=== PATIENT | female | born 1945 | race Caucasian/White ===

== ENCOUNTER 2017-09-29 10:09 | Outpatient (CLI) | payer OTHER ==
[~2017-09-29 10:09] MED LIST: METOPROLOL SUCC25 MG; PLAVIX75 MG; SYMBALTA; SYNTHROID50 MCG
== END 2017-09-29 10:13 | disposition home or self-care (01) ==
LOC: RAD 10:09
DX: M12.842 Other specific arthropathies, not elsewhere classified, left hand (principal); M12.841 Other specific arthropathies, not elsewhere classified, right hand; M12.872 Other specific arthropathies, not elsewhere classified, left ankle and foot; M12.871 Other specific arthropathies, not elsewhere classified, right ankle and foot; M19.072 Primary osteoarthritis, left ankle and foot; M19.071 Primary osteoarthritis, right ankle and foot; M19.042 Primary osteoarthritis, left hand; M19.041 Primary osteoarthritis, right hand

== ENCOUNTER 2018-02-03 10:09 | Outpatient (CLI) | payer OTHER | END 2018-02-03 10:16 | disposition home or self-care (01) | LOC: SONOGRAMA 10:09 | DX: M25.571 Pain in right ankle and joints of right foot (principal) ==

== ENCOUNTER 2019-10-25 09:15 | Inpatient (IN) | payer OTHER ==
[~2019-10-25] VITALS: Ht 121.9 cm; Wt 5.0 kg
[2019-10-25] MEDS ORDERED: ATACAND HCT 321 EACH PO (09:32)
[2019-10-25] MEDS ORDERED: SIMVASTATIN40 MG PO (09:33)
[2019-10-25] MEDS ORDERED: ASPIR 8181 MG PO (09:33)
[2019-10-27] MEDS ORDERED: CYMBALTA20 MG (12:15)
== END 2019-11-03 13:30 | disposition home or self-care (01) | DRG 392 ==
LOC: ER 09:15 → SURH 17:04 → MEDJ 17:04 → SURH 18:20
PROVIDERS: ADMIT Internal Medicine Cardiovascular Disease
PROC: BW21ZZZ Computerized Tomography (CT Scan) of Abdomen and Pelvis (ICD-10-PCS; principal; 2019-10-25)
PROC: BW21ZZZ Computerized Tomography (CT Scan) of Abdomen and Pelvis (ICD-10-PCS; 2019-11-01)
DX: K57.20 Diverticulitis of large intestine with perforation and abscess without bleeding (principal); F31.89 Other bipolar disorder; I10 Essential (primary) hypertension; E03.9 Hypothyroidism, unspecified; D35.01 Benign neoplasm of right adrenal gland
CPT/HCPCS: 72191; 74175

== ENCOUNTER 2020-04-28 11:13 | Outpatient (CLI) | payer OTHER ==
[~2020-04-28 11:13] MED LIST changes: +ASPIR 8181 MG PO; +ATACAND HCT 321 EACH PO; +CYMBALTA20 MG; +SIMVASTATIN40 MG PO
== END 2020-04-28 11:20 | disposition home or self-care (01) ==
LOC: RAD 11:13
PROVIDERS: ATTEND Surgery
DX: R10.32 Left lower quadrant pain (principal); K57.32 Diverticulitis of large intestine without perforation or abscess without bleeding

== ENCOUNTER 2020-05-03 09:02 | Outpatient (CLI) | payer OTHER | END 2020-05-03 09:08 | disposition home or self-care (01) | LOC: LAB 09:02 | PROVIDERS: ATTEND Surgery | DX: K57.32 Diverticulitis of large intestine without perforation or abscess without bleeding (principal); R10.32 Left lower quadrant pain ==

== ENCOUNTER 2020-08-08 09:23 | Emergency (ER) | payer OTHER ==
[~2020-08-08] VITALS: Ht 162.6 cm; Wt 90.7 kg
[2020-08-08] MEDS ORDERED: VITAMIN C WIT1000 MG PO (13:12)
[2020-08-08] MEDS ORDERED: ACETAMINOPHEN650 M2 PO (13:12)
[2020-08-08] MEDS ORDERED: GUAIFENESIN400 MG PO (13:12)
== END 2020-08-08 13:17 | disposition home or self-care (01) ==
LOC: ER 09:23
DX: B34.9 Viral infection, unspecified (principal); J06.9 Acute upper respiratory infection, unspecified; Z03.818 Encounter for observation for suspected exposure to other biological agents ruled out

== ENCOUNTER 2021-08-09 07:54 | Outpatient (CLI) | payer OTHER ==
[~2021-08-09 07:54] MED LIST changes: +ACETAMINOPHEN650 M2 PO; +GUAIFENESIN400 MG PO; +VITAMIN C WIT1000 MG PO
== END 2021-08-09 07:56 | disposition home or self-care (01) ==
LOC: TOM 07:54
PROVIDERS: ATTEND Internal Medicine Gastroenterology
DX: K57.90 Diverticulosis of intestine, part unspecified, without perforation or abscess without bleeding (principal); R10.32 Left lower quadrant pain

== ENCOUNTER 2022-04-26 12:30 | Emergency (ER) | payer OTHER ==
[~2022-04-26] VITALS: Ht 162.6 cm; Wt 88.9 kg
[2022-04-26] MEDS ORDERED: CYMBALTA30 MG PO (12:44)
== END 2022-04-26 14:46 | disposition home or self-care (01) ==
LOC: ER 12:30
DX: R00.2 Palpitations (principal); Z91.041 Radiographic dye allergy status; I10 Essential (primary) hypertension; E03.9 Hypothyroidism, unspecified

== ENCOUNTER 2023-06-07 09:45 | Inpatient (IN) | payer OTHER ==
[~2023-06-07] VITALS: Ht 162.6 cm; Wt 89.8 kg
[~2023-06-07 09:45] MED LIST changes: +CYMBALTA30 MG PO
[2023-06-07] MEDS ORDERED: IRBESARTAN150 MG PO (10:05)
[2023-06-07] MEDS ORDERED: LIPITOR80 MG PO (10:05)
[2023-06-07] MEDS ORDERED: CYMBALTA30 MG PO (10:06)
[2023-06-07] MEDS ORDERED: XARELTO20 MG (10:06)
[2023-06-07] MEDS ORDERED: RESTORIL7.5 MG PO (10:07)
--- NOTE | 2023-06-07 10:07 | NUR ---
SE RECIBE PTE ALERTA Y ORIENTADA X3 CON HX DD INFARTO AL MIOCARDIO. VIENE POR ORDEN DE EL ESTABAN ADAN POR RESULTADOS DE HEMOGLOBINA BAJA. SE OBSERVA A PTE PALIDA Y REFIERE SENTIRSE CANSADA. SE MIDEN S/V Y SE UBICA.
[2023-06-07 11:05] LABS: MEAN CORPUSCULAR HGB CONC 34.6 g/dl (32.0-36.0); PLATELET COUNT 354 K/uL (150-450); RED BLOOD COUNT 2.32 M/uL (4.00-6.00); RED CELL DISTRIBUTION WIDTH 16.3 % (11.5-14.5)
[2023-06-07 11:09] LABS: HEMATOCRIT 20.8 % (36.0-45.00); HEMOGLOBIN 7.2 g/dL (12.0-15.00)
--- NOTE | 2023-06-07 11:19 | NUR ---
SE ELIO MUESTRAS DE LABORATORIO Y SE ADMINISTRABN MEDICAMENTOS SHARRI ORDEN MEDICA Y SIGUIENDO MEDIDAS ASEPTICAS. PTE CANALIZADA EN ANTEBRAZO DERECHO CON ANGIO #18 AREA KVNG DE EDEMA Y ERITEMA RECIBIENDO UN .9 DE NSS @100ML/HR Y UN #20 EN ANTEBRAZO DERECHO AREA KVNG DE PROCESOS INFECCIOSOS CON UN S/L. SE HACE EKG Y SE MUESTRA A , SE ENTREGA EN VASE DE U/A Y DE MICHELLE OCULTA Y SE EDUCA A PTE SOBRE LAS MUESTRAS PTE Y FAMILIAR REFIEREN ENTENDER Y ACEPTAR. PTE BAJO OBSERVACION.
[2023-06-07 11:27] LABS: INR 1.14; PARTIAL THROMBOPLASTIN TIME 30.7 SECONDS (22.0-34.0); PROTHROMBIN TIME 11.9 SECONDS (9.0-11.5)
[2023-06-07 11:34] LABS: ALBUMIN 3.2 gm/dL (3.4-5.0); BILIRUBIN TOTAL 0.51 mg/dL (0.3-1.2); CALCIUM 8.9 mg/dL (8.5-10.1); CREATININE SERUM 0.98 mg/dL (0.55-1.02); GFR 55.18; GLOBULINA 3.6 G/DL (2.4-3.5); POTASSIUM 3.99 mEq/L (3.5-5.1); TOTAL PROTEIN 6.8 gm/dL (6.4-8.2)
[2023-06-07 14:36] LABS: CKMB 1.2 NG/ML (0.5-3.6)
[2023-06-07 19:07] LABS: PH,URINE 5.5 (5.0-8.0); URINE APPEARANCE Clear; URINE BILIRRUBIN Negative (NEGATIVE); URINE BLOOD Negative; URINE COLOR Yellow; URINE GLUCOSE Negative (NEGATIVE); URINE LEUKOCYTE Negative; URINE NITRATE Negative; URINE PROTEIN Negative (NEGATIVE); URINE UROBILINOGEN 0.2 E.U./dl
[2023-06-07 19:11] LABS: URINE BACTERIA 157.4 uL (0.0-1933); URINE EPITHELIAL CELLS 13.2 uL (0.0-38.8); URINE WBC 6.3 uL (0.0-23.2)
[2023-06-07 19:35] LABS: URINE RBC 0.7 uL (0.0-20.8)
[2023-06-08 09:25] LABS: MEAN CELL VOLUME 89.1 fL (80.00-100.00); MEAN CORPUSCULAR HGB CONC 33.9 g/dl (32.0-36.0); PLATELET COUNT 332 K/uL (150-450); RED BLOOD COUNT 2.58 M/uL (4.00-6.00); RED CELL DISTRIBUTION WIDTH 17.1 % (11.5-14.5)
[2023-06-08 09:44] LABS: CKMB 1.2 NG/ML (0.5-3.6)
[2023-06-08 09:47] LABS: HEMOGLOBIN 7.8 g/dL (12.0-15.00); MEAN CORPUSCULAR HEMOGLOBIN 30.2 pg (27.00-32.0)
[2023-06-08 10:06] LABS: ALBUMIN 3.1 gm/dL (3.4-5.0); BILIRUBIN TOTAL 0.5 mg/dL (0.3-1.2); CALCIUM 8.7 mg/dL (8.5-10.1); CREATININE SERUM 1.05 mg/dL (0.55-1.02); GFR 50.95; MAGNESIUM 2.2 mg/dL (1.8-2.4); POTASSIUM 3.89 mEq/L (3.5-5.1); TOTAL PROTEIN 6.1 gm/dL (6.4-8.2); TSH 4.55 uIU/mL (0.358-3.74)
[2023-06-08 11:50] LABS: ob POSITIVE (NEGATIVE)
[2023-06-09 07:05] LABS: HEMATOCRIT 26.5 % (36.0-45.00); MEAN CELL VOLUME 88.3 fL (80.00-100.00); MEAN CORPUSCULAR HGB CONC 33.9 g/dl (32.0-36.0); PLATELET COUNT 300 K/uL (150-450); RED CELL DISTRIBUTION WIDTH 16.4 % (11.5-14.5)
[2023-06-10 11:40] LABS: HEMATOCRIT 31.4 % (36.0-45.00); HEMOGLOBIN 10.4 g/dL (12.0-15.00); MEAN CELL VOLUME 85.2 fL (80.00-100.00); MEAN CORPUSCULAR HEMOGLOBIN 28.4 pg (27.00-32.0); MEAN CORPUSCULAR HGB CONC 33.3 g/dl (32.0-36.0); PLATELET COUNT 295 K/uL (150-450); RED BLOOD COUNT 3.68 M/uL (4.00-6.00)
[2023-06-11 06:31] LABS: HEMATOCRIT 29.9 % (36.0-45.00); HEMOGLOBIN 9.9 g/dL (12.0-15.00); MEAN CELL VOLUME 85.1 fL (80.00-100.00); MEAN CORPUSCULAR HEMOGLOBIN 28.1 pg (27.00-32.0); PLATELET COUNT 296 K/uL (150-450); RED BLOOD COUNT 3.52 M/uL (4.00-6.00); RED CELL DISTRIBUTION WIDTH 19.3 % (11.5-14.5)
[2023-06-11 06:49] LABS: ALBUMIN 3.1 gm/dL (3.4-5.0); BILIRUBIN TOTAL 0.73 mg/dL (0.3-1.2); CALCIUM 8.9 mg/dL (8.5-10.1); CREATININE SERUM 0.89 mg/dL (0.55-1.02); GFR 61.67; GLOBULINA 2.9 G/DL (2.4-3.5); MAGNESIUM 2.2 mg/dL (1.8-2.4); PHOSPHOROUS 3.7 mg/dL (2.5-4.9); POTASSIUM 3.93 mEq/L (3.5-5.1)
[2023-06-12 06:50] LABS: HEMATOCRIT 28.9 % (36.0-45.00); HEMOGLOBIN 9.8 g/dL (12.0-15.00); MEAN CELL VOLUME 84.6 fL (80.00-100.00); MEAN CORPUSCULAR HEMOGLOBIN 28.6 pg (27.00-32.0); MEAN CORPUSCULAR HGB CONC 33.8 g/dl (32.0-36.0); PLATELET COUNT 302 K/uL (150-450); RED BLOOD COUNT 3.42 M/uL (4.00-6.00); RED CELL DISTRIBUTION WIDTH 19.9 % (11.5-14.5)
[2023-06-12] MEDS ORDERED: CLOPIDOGREL BIS75 MG PO (18:47)
[2023-06-12] MEDS ORDERED: AMIODARONE HCL200 MG PO (18:48)
== END 2023-06-12 18:49 | disposition home or self-care (01) | DRG 315 ==
LOC: ER 09:45 → MEDI 13:11
PROVIDERS: General Practice; ADMIT Internal Medicine; ATTEND Internal Medicine
PROC: 30233N1 Transfusion of Nonautologous Red Blood Cells into Peripheral Vein, Percutaneous Approach (ICD-10-PCS; principal; 2023-06-07)
PROC: B246ZZZ Ultrasonography of Right and Left Heart (ICD-10-PCS; 2023-06-07)
PROC: BW21ZZZ Computerized Tomography (CT Scan) of Abdomen and Pelvis (ICD-10-PCS; 2023-06-07)
DX: T82.837A Hemorrhage due to cardiac prosthetic devices, implants and grafts, initial encounter (principal); F31.89 Other bipolar disorder; K92.1 Melena; I48.20 Chronic atrial fibrillation, unspecified; D64.89 Other specified anemias; I11.9 Hypertensive heart disease without heart failure; I25.10 Atherosclerotic heart disease of native coronary artery without angina pectoris; E78.00 Pure hypercholesterolemia, unspecified; Z79.01 Long term (current) use of anticoagulants; Z95.5 Presence of coronary angioplasty implant and graft

== ENCOUNTER 2024-09-05 19:31 | Emergency (ER) | payer OTHER ==
[~2024-09-05] VITALS: Ht 162.6 cm; Wt 90.7 kg
[~2024-09-05 19:31] MED LIST changes: +AMIODARONE HCL200 MG PO; +CLOPIDOGREL BIS75 MG PO; +IRBESARTAN150 MG PO; +LIPITOR80 MG PO; +RESTORIL7.5 MG PO; +XARELTO20 MG
[2024-09-05] MEDS ORDERED: 0.9 % SODIUM CHLORIDE 1,000 ML IV ONE (20:30)
[2024-09-05 21:26] LABS: HEMOGLOBIN 13.9 g/dL (12.0-15.00); MEAN CELL VOLUME 92.5 fL (80.00-100.00); MEAN CORPUSCULAR HEMOGLOBIN 31.3 pg (27.00-32.0); MEAN CORPUSCULAR HGB CONC 33.8 g/dl (32.0-36.0); PLATELET COUNT 257 K/uL (150-450); RED BLOOD COUNT 4.44 M/uL (4.00-6.00); RED CELL DISTRIBUTION WIDTH 14.5 % (11.5-14.5)
[2024-09-05 21:40] LABS: INR 1.28; PARTIAL THROMBOPLASTIN TIME 32.3 SECONDS (22.0-34.0); PROTHROMBIN TIME 13.7 SECONDS (9.0-11.5)
[2024-09-05 21:49] LABS: ALBUMIN 3.5 gm/dL (3.4-5.0); BILIRUBIN TOTAL 0.67 mg/dL (0.3-1.2); CALCIUM 9.1 mg/dL (8.5-10.1); CREATININE SERUM 1.28 mg/dL (0.55-1.02); GFR 40.43; GLOBULINA 3.7 G/DL (2.4-3.5); POTASSIUM 3.81 mEq/L (3.5-5.1); TOTAL PROTEIN 7.2 gm/dL (6.4-8.2)
[2024-09-06 00:52] LABS: PH,URINE 5.5 (5.0-8.0); URINE APPEARANCE Turbid; URINE BILIRRUBIN Negative (NEGATIVE); URINE BLOOD Negative; URINE COLOR Yellow; URINE GLUCOSE Negative (NEGATIVE); URINE KETONE Negative (NEGATIVE); URINE LEUKOCYTE Moderate; URINE NITRATE Negative; URINE PROTEIN Trace (NEGATIVE); URINE UROBILINOGEN 0.2 E.U./dl
[2024-09-06 00:56] LABS: URINE BACTERIA 854.3 uL (0.0-1933); URINE CAST 16.79 uL (0.0-1.40); URINE RBC 1624.4 uL (0.0-20.8); URINE WBC 66.8 uL (0.0-23.2)
[2024-09-06 02:01] LABS: URINE MUCUS MODERATE
[2024-09-06 15:33] LABS: CALCIUM 9.3 mg/dL (8.5-10.1); CREATININE SERUM 0.8 mg/dL (0.55-1.02); GFR 69.55; POTASSIUM 3.68 mEq/L (3.5-5.1)
== END 2024-09-06 17:59 | disposition home or self-care (01) ==
LOC: ER 19:31
PROVIDERS: Emergency Medicine; General Practice
DX: I48.91 Unspecified atrial fibrillation (principal); Z98.61 Coronary angioplasty status; R55 Syncope and collapse; R41.82 Altered mental status, unspecified; R00.1 Bradycardia, unspecified; N39.0 Urinary tract infection, site not specified; F31.30 Bipolar disorder, current episode depressed, mild or moderate severity, unspecified; D35.00 Benign neoplasm of unspecified adrenal gland; R53.1 Weakness; M54.9 Dorsalgia, unspecified; I10 Essential (primary) hypertension; E03.8 Other specified hypothyroidism; Z91.041 Radiographic dye allergy status
CPT/HCPCS: 36415; 70450; 71045; 93005; 93041; 96365; 96366; 99284; J7030

== ENCOUNTER 2024-09-20 09:27 | Outpatient (CLI) | payer OTHER | END 2024-09-20 09:37 | disposition home or self-care (01) | LOC: MRI 09:27 | PROVIDERS: ATTEND Internal Medicine | DX: R55 Syncope and collapse (principal) | CPT/HCPCS: 70551 ==

== ENCOUNTER → 2025-08-05 11:15 | Outpatient (CLI) | payer OTHER | END | disposition home or self-care (01) | LOC: RAD 11:15 | PROVIDERS: ATTEND Internal Medicine Cardiovascular Disease | DX: M19.90 Unspecified osteoarthritis, unspecified site (principal); M46.47 Discitis, unspecified, lumbosacral region ==